=== PATIENT | female | born 1935 | race Caucasian/White ===

== ENCOUNTER → 2016-09-04 | Outpatient (CLI) | payer OTHER ==
--- NOTE | 2016-09-04 11:55 | DIAGNOSTIC IMAGING REPORT ---
RETROPERITONEAL COMPLETE CLINICAL HISTORY: Renal cyst. COMPARISON STUDY: Renal ultrasound June 12, 2016. FINDINGS: The right kidney measures 10.2 x 4 x 4.9 cm and the left measures 10.1 x 5 x 4.8 cm. Note is made of a 7 x 4.8 x 6.6 cm complex cystic lesion arising from the midpole of the left kidney. Peripheral irregularity of this lesion is noted. No definite color flow is identified within the irregular peripheral component. The appearance is similar to exam of June 04, 2016 when allowing for measurement variability. There is no hydronephrosis. No calculi are identified. Both ureteral jets were identified. IMPRESSION: 1. No significant change in the 7 cm complex cystic lesion arising from the midpole of the left kidney. This lesion remains indeterminate and could reflect a complex cyst or a cystic neoplasm. A renal protocol CT or MRI could be obtained for further characterization as indicated. 2. No hydronephrosis. Electronically signed by: Kenneth Willson M.D. 09/04/2016 11:54 AM Dictated Date/Time: 09/04/2016 11:50 AM
[2016-09-04 12:38] LABS: BLOOD UREA NITROGEN 22 mg/dl (7-18); BUN/CREATININE RATIO 24.7 (10-20); CALCIUM 9.6 mg/dl (8.5-10.1); CARBON DIOXIDE 27 mmol/L (21-32); CHLORIDE 105 mmol/L (98-107); CREATININE 0.87 mg/dl (0.60-1.20); GLUCOSE 91 mg/dl (70-99); SODIUM 142 mmol/L (136-145)
[2016-09-04 12:39] LABS: PHOSPHORUS 3.5 mg/dl (2.5-4.9)
== END | disposition home or self-care (01) ==
LOC: C.ULTR 10:56
PROVIDERS: ATTEND Internal Medicine Nephrology
DX: N28.1 Cyst of kidney, acquired (principal)